=== PATIENT | male | born 1965 | race Caucasian/White ===

== ENCOUNTER 2017-04-07 10:01 | Emergency (ER) | payer OTHER ==
[~2017-04-07] VITALS: Ht 175.3 cm; Wt 111.1 kg
[~2017-04-07 10:01] MED LIST: NEXI40CA PO
[2017-04-07] MEDS ORDERED: OMEP20CA3 (10:11)
[2017-04-07 11:26] VITALS: BP 116/67
--- NOTE | 2017-04-09 06:25 | ECGEPIP ---
Stationary ECG Study [facility] - ED Test Date: 2017-04-07 Pat Name: PHOEBE LIAO Department: Room: - Gender: M Craft Artist: sb : 1965 Requested By: Jevon Chris Order Number: [id number] Reading MD: Jevon Contreras Measurements Intervals [place] Rate: 58 P: 44 MD: 202 QRS: 44 QRSD: 91 T: 38 QT: 377 QTc: 372 Interpretive Statements SINUS BRADYCARDIA Electronically Signed On 04-09-2017 6:24:56 EDT by Jevon Contreras
== END 2017-04-07 11:32 | disposition home or self-care (01) ==
LOC: M ED 11:05
DX: R07.89 Other chest pain (principal); T75.4XXA Electrocution, initial encounter; K21.9 Gastro-esophageal reflux disease without esophagitis; Z88.1 Allergy status to other antibiotic agents; Z88.2 Allergy status to sulfonamides; Z79.899 Other long term (current) drug therapy

== ENCOUNTER → 2018-09-23 | Outpatient (CLI) | payer OTHER | LOC: M WUC 11:49 | DX: M54.5 Low back pain (principal) | CPT/HCPCS: 72110 ==

== ENCOUNTER 2020-12-05 08:28 | Emergency (ER) | payer BC, OTHER ==
[~2020-12-05] VITALS: Ht 175.3 cm; Wt 112.9 kg
[2020-12-05 08:28] VITALS: BP 157/72
[~2020-12-05 08:28] MED LIST changes: +OMEP1CAP73
--- NOTE | 2020-12-05 09:17 | REP ---
INDICATION: R shoulder pain COMPARISON: None. TECHNIQUE: Internal rotation, external rotation, and Y view. FINDINGS: Cortical irregularity and inferior spurring at the acromioclavicular joint noted. The subacromial space is normal. No periarticular calcifications or loose bodies identified. Glenohumeral joint appears intact and relatively normal. No evidence for acute fracture or dislocation. IMPRESSION: Mild arthritic changes primarily involving the acromioclavicular joint. <Electronically signed by Beka Morse > 12/05/20 [id number]
== END 2020-12-05 09:54 | disposition home or self-care (01) ==
LOC: M ED 08:28
DX: M19.011 Primary osteoarthritis, right shoulder (principal); K21.9 Gastro-esophageal reflux disease without esophagitis; F17.200 Nicotine dependence, unspecified, uncomplicated; Z88.2 Allergy status to sulfonamides; Z79.899 Other long term (current) drug therapy

== ENCOUNTER 2021-11-10 20:08 | Emergency (ER) | payer BC ==
[~2021-11-10] VITALS: Ht 175.3 cm; Wt 102.3 kg
[2021-11-10 20:46] LABS: BASO # 0.1 10^3/uL (0.0-0.2); BASO % 0.7 % (0.0-1.0); EOS # 0.4 10^3/uL (0.0-0.5); EOS % 3.9 % (0.0-3.0); HEMATOCRIT 44.8 % (42.0-52.0); LYMPH % 27.6 % (24.0-44.0); MEAN CORPUSCULAR HEMOGLOBIN 32.3 pg (27.0-33.0); MEAN CORPUSCULAR HGB CONC 35.7 g/dl (32.0-36.5); MEAN CORPUSCULAR VOLUME 90.3 fl (80.0-96.0); MONO # 0.8 10^3/uL (0.0-0.8); MONO % 7.1 % (2.0-8.0); NEUTROPHILS # 6.6 10^3/uL (1.5-8.5); NEUTROPHILS % 60.4 % (36.0-66.0); PLATELET COUNT, AUTOMATED 327 10^3/uL (150-450); RED BLOOD COUNT 4.96 10^6/uL (4.30-6.10); WHITE BLOOD COUNT 10.9 10^3/uL (4.0-10.0)
--- NOTE | 2021-11-10 20:48 | REP ---
INDICATION: CHEST PAIN COMPARISON: None. TECHNIQUE: Portable AP view of the chest FINDINGS: The mediastinum and cardiac silhouette are within normal limits for portable technique. The lung russo are clear without acute consolidation, effusion, or pneumothorax. Skeletal structures are intact. IMPRESSION: No acute cardiopulmonary process appreciated. <Electronically signed by Beka Morse > 11/10/21 [id number]
[2021-11-10 21:13] LABS: CK-MB VALUE MASS 1.3 NG/ML (<3.6); MB/CK RELATIVE INDEX 1.27 (< OR =4)
[2021-11-10 21:35] LABS: ALBUMIN 3.8 GM/DL (3.2-5.2); ALT/SGPT 20 U/L (12-78); BILIRUBIN,DIRECT 0.1 MG/DL (0.0-0.2); BILIRUBIN,TOTAL 0.3 MG/DL (0.2-1.0); BLOOD UREA NITROGEN 10 MG/DL (7-18); CALCIUM LEVEL 8.9 MG/DL (8.5-10.1); CARBON DIOXIDE LEVEL 26 MEQ/L (21-32); CHLORIDE LEVEL 108 MEQ/L (98-107); CREATININE FOR GFR 0.86 MG/DL (0.70-1.30); GLOMERULAR FILTRATION RATE > 60.0 (>56); GLUCOSE, FASTING 107 MG/DL (70-100); LIPASE 116 U/L (73-393); NT-PRO BNP 27 PG/ML (<125); POTASSIUM SERUM 3.8 MEQ/L (3.5-5.1); SODIUM LEVEL 142 MEQ/L (136-145); THYROID STIMULATING HORMONE 0.929 uIU/ML (0.358-3.740); TOTAL PROTEIN 7.4 GM/DL (6.4-8.2)
[2021-11-10 22:04] LABS: CK-MB VALUE MASS 1.6 NG/ML (<3.6); MB/CK RELATIVE INDEX 1.54 (< OR =4)
[2021-11-10 22:30] VITALS: BP 131/63
--- NOTE | 2021-11-11 07:50 | ECGEPIP ---
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
--- NOTE | 2021-11-11 07:50 | ECGEPIP ---
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
== END 2021-11-10 23:20 | disposition left against medical advice (07) ==
LOC: M ED 20:08
DX: I21.4 Non-ST elevation (NSTEMI) myocardial infarction (principal); Z53.9 Procedure and treatment not carried out, unspecified reason; K21.9 Gastro-esophageal reflux disease without esophagitis; F17.210 Nicotine dependence, cigarettes, uncomplicated; Z88.2 Allergy status to sulfonamides; Z79.899 Other long term (current) drug therapy

== ENCOUNTER 2024-08-06 06:53 | Day surgery (SDC) | payer BC ==
[~2024-08-06] VITALS: Ht 175.3 cm; Wt 103.9 kg
[~2024-08-06 06:53] MED LIST changes: +NS 1,000 ML IV ONE; +OMEP1CAP73 PO
[2024-08-06] MEDS ORDERED: fentaNYL 100 MCG/2 ML INJECTION As Ordered ONE (07:26)
[2024-08-06] MEDS ORDERED: LIDOCAINE 2% 100MG/5ML SDV (FOR ANES.) As Ordered ONE (07:27)
[2024-08-06] MEDS ORDERED: propofoL 200 MG/20 ML VIAL As Ordered ONE (07:27)
[2024-08-06 08:25] VITALS: TEMP 98.5
[2024-08-06 08:40] VITALS: BP 118/55; O2SAT 94
== END 2024-08-06 08:59 | disposition home or self-care (01) ==
LOC: M OPP 06:53
PROVIDERS: ATTEND Surgery
DX: Z12.11 Encounter for screening for malignant neoplasm of colon (principal); D12.5 Benign neoplasm of sigmoid colon; K31.A21 Gastric intestinal metaplasia with low grade dysplasia; D12.3 Benign neoplasm of transverse colon; D12.2 Benign neoplasm of ascending colon; D12.4 Benign neoplasm of descending colon; D12.8 Benign neoplasm of rectum; K44.9 Diaphragmatic hernia without obstruction or gangrene; Q43.8 Other specified congenital malformations of intestine; K31.89 Other diseases of stomach and duodenum; K21.9 Gastro-esophageal reflux disease without esophagitis; Z87.19 Personal history of other diseases of the digestive system; Z85.820 Personal history of malignant melanoma of skin; Z90.49 Acquired absence of other specified parts of digestive tract; F17.210 Nicotine dependence, cigarettes, uncomplicated; Z79.899 Other long term (current) drug therapy; Z88.2 Allergy status to sulfonamides
CPT/HCPCS: 43239; 45385; 88305; J3010